=== PATIENT | male | born 1960 | race Caucasian/White ===

== ENCOUNTER → 2016-08-21 | Outpatient (CLI) | payer MEDICARE, MEDICAID ==
[~2016-08-21] MED LIST: ASPIRIN325 M1 PO; DICLOFENAC SODI75 M2 PO; FLEXERIL10 MG PO; GABAPENTIN 400400 MG PO; LISINOPRIL40 MG PO; METFORMIN500 MG PO; PRILOSEC20 M1 PO; Prilosec20 MG PO; TRAZODONE 50MG50 MG PO; ZANTAC 300300 MG PO
--- NOTE | 2016-08-23 08:02 | RADIOLOGY REPORT PS360 ---
MRI-L-SPINE W/O, MRI-3D RENDERING/MYELOGRAM HISTORY: Low back pain with bilateral leg pain and numbness and tingling BACK PAIN ORDERING PHYSICIAN: LEILA HERNANDEZ CRNA PATIENT AGE: 56 years COMPARISON: Radiograph of 07/22/2016 TECHNIQUE: Standard multiplanar multiecho sequences are performed without contrast. 3-D MIP and myelographic images are also rendered and reviewed FINDINGS: There is normal alignment. The spinal cord ends at the L1 level. T12-L1, L1-L2, L2-L3 have an unremarkable appearance. L3-L4: Mild facet and ligamentum flavum hypertrophy. L4-L5: There is mild anterolisthesis of L4 on L5 by approximately 4 mm with mild concentric bulging disc with a small right foraminal/lateral broad-based disc protrusion/disc osteophyte complex along with facet hypertrophic change which is greater on the right causing moderate to severe right-sided lateral recess narrowing and foraminal narrowing. A small amount fluid in the right facet joint at this level there is transverse narrowing of the canal also at this level measuring approximately 8 mm. L5-S1: Unremarkable. No extruded herniated disc. No acute fracture. IMPRESSION: 1. Mild anterolisthesis of L4 on L5 with bulging disc and small broad-based right foraminal/lateral disc protrusion versus disc osteophyte complex with prominent facet hypertrophic changes greater on the right causing moderate to severe right-sided lateral recess and foraminal narrowing the lungs transverse canal stenosis
== END ==
LOC: RAD 07:41
DX: M54.5 Low back pain (principal)

== ENCOUNTER 2016-09-15 11:11 | Day surgery (SDC) | payer MEDICARE ==
[~2016-09-15] VITALS: Ht 182.9 cm; Wt 108.9 kg
[2016-09-15 11:45] VITALS: BP 149/82
[2016-09-15 11:57] VITALS: BP 149/82
[2016-09-15 11:58] VITALS: BP 145/82
[2016-09-15 12:05] VITALS: BP 121/80
--- NOTE | 2016-09-21 16:41 | Procedure Note ---
Procedure detail Date of procedure: 09/15/16 Anesthesiologist: Jason hernandez CRNA Complications: None Pre-procedure diagnosis: Degenerative disease lumbar spine multiple levels. Lumbar facet arthropathy. Lumbar spondylosis. Post-procedure diagnosis: Same. Indications for procedure: This patient is a 56-year-old white male who we are seeing for low back pain and RIGHT hip pain. He had a RIGHT SI joint injection under fluoroscopy which did not really help him. On his MRI he does have facet arthropathy at L4-L5 and L5- S1. His pain may be facet mediated. He has increased pain with extension. He is tenderness over the facet joints on the RIGHT side. I do believe he would benefit from right-sided facet joint injections of L4-L5 and L5-S1. Procedure detail: Informed consent was obtained and the risk and benefits of the procedure was explained to the patient. Patient was taken to the procedure room where noninvasive monitors were placed, including noninvasive blood pressure cuff as well as pulse oximeter. The area over the lumbar spine was cleansed using chlorhexidine as a cleansing solution. I anesthetized the skin and subcutaneous tissues with 1% Lidocaine. I placed 22-gauge spinal needles into the facet joint / medial branches of [L3-L4, L4-L5, and L5-S1] RIGHT. Needle placement was confirmed with fluoroscopy. After confirmation of needle placement, each site was injected with 1 mL of 1% lidocaine and 0.25 % Marcaine and 10 mg of Depo- Medrol. A total of 80 mg of depo medrol was used for bilateral medial branch blocks of [L3-L4, L4-L5, and L5-S1] RIGHT. Patient tolerated the procedure without difficulty. There were no complications. Plan and disposition: Patient was reevaluated 10 minutes postprocedure. Patient reports 75 percent improved terms her RIGHT lumbar back pain. He'll continue to follow up with some pain clinic for further evaluation. at 1645
== END 2016-09-15 12:06 | disposition home or self-care (01) ==
LOC: PM 11:11
PROC: 3E0T33Z Introduction of Anti-inflammatory into Peripheral Nerves and Plexi, Percutaneous Approach (ICD-10-PCS; principal; 2016-09-15)
PROC: 3E0T3BZ Introduction of Anesthetic Agent into Peripheral Nerves and Plexi, Percutaneous Approach (ICD-10-PCS; 2016-09-15)
PROC: BR161ZZ Fluoroscopy of Lumbar Facet Joint(s) using Low Osmolar Contrast (ICD-10-PCS; 2016-09-15)
DX: M51.36 Other intervertebral disc degeneration, lumbar region (principal); M46.96 Unspecified inflammatory spondylopathy, lumbar region; M47.896 Other spondylosis, lumbar region
CPT/HCPCS: J1040